=== PATIENT | male | born 1990 | race Caucasian/White ===

== ENCOUNTER 2016-11-05 14:57 | Emergency (ER) | payer BC ==
[~2016-11-05] VITALS: Ht 167.6 cm; Wt 102.0 kg
[2016-11-05 15:48] VITALS: BP 135/84
== END 2016-11-05 22:02 | disposition left against medical advice (07) ==
LOC: ER 21:05
DX: R51 Headache (principal); Z53.21 Procedure and treatment not carried out due to patient leaving prior to being seen by health care provider